=== PATIENT | female | born 1985 | race Caucasian/White ===

== ENCOUNTER 2017-03-04 12:06 | Emergency (ER) | payer MEDICAID, OTHER ==
[~2017-03-04] VITALS: Ht 160 cm; Wt 97.6 kg
[2017-03-04 12:12] VITALS: Ht 160 cm; Wt 97.6 kg
--- NOTE | 2017-03-04 13:20 | ERD ---
ER Documentation Chief Complaint Chief Complaint C/O moderate pain on right side of lower back with electric sensation legs HPI 31-year-old female history of gastric bypass in October, obesity otherwise healthy comes in with right-sided low back pain radiating towards her neck. Patient states that about 2 days ago she had missed step on the stairs and she fell onto the right side of her low back. This patient states she has achy pain , and she also has sharp electrical sensations going up towards her neck but denies any radicular symptoms to her extremities, or saddle anesthesia. The patient states that the pain is worse in movement and better at rest or sitting. She denies any fevers chills, chest pain, shortness breath. ROS All systems reviewed and are negative except as per history of present illness. Allergies Allergies: Coded Allergies: No Known Allergy (Unverified , 01/10/14) PMhx/Soc History of Surgery: Yes (Gastric sleeve) Hx Miscellaneous Medical Probl: Yes (Obesity) Hx Alcohol Use: No Hx Substance Use: No Hx Tobacco Use: No Physical Exam Vitals Vital Signs Date Time Temp Pulse Resp B/P Pulse Ox O2 Delivery O2 Flow Rate FiO2 03/04/17 12:12 99.1 108 20 117/70 97 Physical Exam General: Well-developed, well-nourished. The patient appears in no acute distress. HEENT: Head is normocephalic, atraumatic. No scleral icterus. Neck: Supple. Nontender. Lungs: Clear to auscultation. Normal air movement. Heart: Regular rate and rhythm. S1 and S2 are normal. No murmurs, gallops, or rubs. Abdomen: Soft, nontender, nondistended. Bowel sounds are normoactive. Back: no definite midline tenderness, there is soft tissue tenderness on the right lumbar region on L4-L5 as well as the lumbosacral region. Strength lower extremities 5 out of 5 bilaterally. Extremities: No clubbing or cyanosis. Normal pulses. Moving extremities x 4. No weakness. Neurologic: Alert and oriented 3. No focal deficits. Skin: Normal turgor. No rash or lesions. Results 24 hrs Current Medications Medications (Trade) Dose Ordered Sig/Shalini Route PRN Reason Start Time Stop Time Status Last Admin Dose Admin Acetaminophen (Tylenol Liquid (Ped)) 650 mg ONCE ONCE PO 03/04/17 13:30 03/04/17 13:31 DC 03/04/17 13:28 DIAGNOSTIC IMAGING REPORT Patient: SUE LIU : 1985 Age: 31 Sex: F MR #: [id number] DOS: 03/04/17 1312 Ordering MD: JES ASHLEY PA-C Location: [facility] Room/Bed: PROCEDURE: XR Pelvis. CLINICAL INDICATION: Pain, trauma . TECHNIQUE: Single AP view of the pelvis. COMPARISON: No prior studies are available for comparison. FINDINGS: The osseous structures demonstrate normal alignment and mineralization. No acute fracture or dislocation is seen. The femoral acetabular joints are normal in appearance bilaterally. The sacroiliac joints are grossly unremarkable. The soft tissues are grossly unremarkable. IMPRESSION: Normal AP view of the pelvis. RPTAT: HH .Cristina Day MD, Date Time Electronically viewed and signed by .Cristina Day MD, on 03/04/2017 14 :37 .G/ CC: JES ASHLEY PA-C DIAGNOSTIC IMAGING REPORT Patient: SUE LIU : 1985 Age: 31 Sex: F MR #: [id number] DOS: 03/04/17 1312 Ordering MD: JES ASHLEY PA-C Location: [facility] Room/Bed: PROCEDURE: XR Lumbar Spine. CLINICAL INDICATION: Trauma, injury TECHNIQUE: AP, lateral and cone-down lateral view of the lumbar spine were obtained. COMPARISON: No prior studies are available for comparison. FINDINGS: There is normal vertebral mineralization. No fracture or subluxation is seen. The disc spaces are normal in appearance. The posterior elements are unremarkable. The soft tissues appear normal. IMPRESSION: Unremarkable lumbar spine. RPTAT:AAJJ Physician Jose Angel Date Time Electronically viewed and signed by Nas Cheung Physician on 03/04/2017 14: 28 MC/ CC: JES ASHLEY PA-C Procedures/MDM ED COURSE: Urine : The patient was given Tylenol. [employer] MAKIN-year-old female comes in back pain after a fall, due to the patient's body habitus, was not able to palpate her spinous processes, and x-ray of the lumbar spine for the pelvis were obtained, no acute fractures or dislocation. Patient' s pain is due to soft tissue injury, most consistent with a back contusion. Patient's spine symptoms have stabilized while they have been evaluated in the department and are appropriate for outpatient work up. No evidence of cauda equina, cord compression, infiltrative, or infectious etiology. Departure Diagnosis: Primary Impression: Injury of back Condition: Good JES ASHLEY PA-C Mar 04, 2017 13:20
[2017-03-04] MEDS ORDERED: ACETAMINOPHEN 160 MG/5ML CUP PO ONE (13:30)
--- NOTE | 2017-03-04 14:28 | RADRPT ---
PROCEDURE: XR Lumbar Spine. CLINICAL INDICATION: Trauma, injury TECHNIQUE: AP, lateral and cone-down lateral view of the lumbar spine were obtained. COMPARISON: No prior studies are available for comparison. FINDINGS: There is normal vertebral mineralization. No fracture or subluxation is seen. The disc spaces are normal in appearance. The posterior elements are unremarkable. The soft tissues appear normal. IMPRESSION: Unremarkable lumbar spine. RPTAT:AAJJ Physician Jose Agnel Date Time Electronically viewed and signed by Nas Cheung Physician on 03/04/2017 14:28 DEBO/
--- NOTE | 2017-03-04 14:37 | RADRPT ---
PROCEDURE: XR Pelvis. CLINICAL INDICATION: Pain, trauma . TECHNIQUE: Single AP view of the pelvis. COMPARISON: No prior studies are available for comparison. FINDINGS: The osseous structures demonstrate normal alignment and mineralization. No acute fracture or disloc ation is seen. The femoral acetabular joints are normal in appearance bilaterally. The sacroiliac joints are grossly unremarkable. The soft tissues are grossly unremarkable. IMPRESSION: Normal AP view of the pelvis. RPTAT: HH .Cristina Day MD, MD Date Time Electronically viewed and signed by .Cristina Day MD, on 03/04/2017 14:37 .G/
== END 2017-03-04 15:02 | disposition home or self-care (01) ==
LOC: FTE 12:06
DX: S39.92XA Unspecified injury of lower back, initial encounter (principal); E66.9 Obesity, unspecified; W10.9XXA Fall (on) (from) unspecified stairs and steps, initial encounter; Y92.9 Unspecified place or not applicable
CPT/HCPCS: 72100; 72170; Z7502; Z7610

== ENCOUNTER 2017-10-23 00:25 | Emergency (ER) | END 2017-10-23 02:04 | disposition home or self-care (01) ==

== ENCOUNTER 2018-01-26 06:10 | Emergency (ER) | END 2018-01-26 08:57 | disposition home or self-care (01) ==

== ENCOUNTER 2018-02-10 10:22 | Emergency (ER) | END 2018-02-10 13:23 | disposition home or self-care (01) ==

== ENCOUNTER 2018-02-12 09:57 | Inpatient (IN) | END 2018-02-13 14:58 | disposition home or self-care (01) | DRG 690 ==

== ENCOUNTER 2018-04-11 06:50 | Emergency (ER) | payer OTHER ==
[~2018-04-11] VITALS: Wt 78.8 kg
[~2018-04-11 06:50] MED LIST: ACET160O41 PO; ACET160S2 PO; IBUP-1542 PO; ONDA4TAB14 PO; SULF1TAB31 PO; Work Note
[2018-04-11 06:52] VITALS: BP 114/65; PULSE 79; RESP 18
[2018-04-11] MEDS ORDERED: CEPHALEXIN 500 MG CAP PO ONE (09:00)
[2018-04-11] MEDS ORDERED: CEPH-443 PO (09:01)
--- NOTE | 2018-04-11 09:06 | ERD ---
ER Documentation Chief Complaint Chief Complaint 9 weeks with bleeding HPI 33-year-old female presents with some spotting while urinating in the urge to urinate since last night. She is approximately 9 weeks by dates. She is a G1 para 0. She may have minimal suprapubic cramping. She denies fevers, vomiting, upper abdominal pain. ROS All systems reviewed and are negative except as per history of present illness. Medications Home Meds Active Scripts Cephalexin* (Keflex*) 500 Mg Capsule, 500 MG PO QID for 5 Days, CAP Prov:RAMONA OLIVEROS MD 04/11/18 [Work Note] No Conflict Check This is to certify that the patient was admitted to [facility] from 02/11/2018 to 02/13/2018. The patient can return back to work on 02/16/2018 with no restrictions. Prov:REESE AU NP 02/13/18 Acetaminophen* (Tylenol*) 160 Mg/5ML-Ped Cup, 320 MG PO Q4H PRN for PAIN, #1 BOTTLE 10 ml Q4H Prov:REESE AU NP 02/13/18 Sulfamethoxazole/Trimethoprim* (Bactrim Ds* Tablet) 1 Each Tablet, 1 TAB PO BID for 10 Days, #20 TAB Prov:REESE AU NP 02/13/18 Ondansetron (Ondansetron Odt) 4 Mg Tab.rapdis, 4 MG PO Q6H PRN for NAUSEA AND/OR VOMITING, #10 TAB Prov:JENA FREEMAN PA-C 02/10/18 Acetaminophen* (Acetaminophen* Susp) 160 Mg/5 Ml Oral.susp, 10 ML PO Q4H PRN for PAIN OR FEVER MDD 5, #1 BOTTLE Prov:DIMA MEYERS PA-C 01/26/18 Ibuprofen* (Ibuprofen*) 600 Mg Tablet, 600 MG PO Q6, #30 TAB Prov:DIMA MEYERS PA-C 01/26/18 Allergies Allergies: Coded Allergies: No Known Allergy (Unverified , 04/11/18) PMhx/Soc History of Surgery: Yes (gastric by pass 2016) Anesthesia Reaction: No Hx Neurological Disorder: No Hx Respiratory Disorders: No Hx Cardiac Disorders: No Hx Psychiatric Problems: No Hx Miscellaneous Medical Probl: Yes (gallstone) Hx Alcohol Use: Yes (SOCIAL USE IN THE PAST ) Hx Substance Use: Yes (SOCIAL USE IN THE PAST ) Hx Tobacco Use: No FmHx Family History: No diabetes, No coronary disease, No other Physical Exam Vitals Vital Signs Date Temp Pulse Resp B/P (MAP) Pulse Ox O2 O2 Flow FiO2 Time Delivery Rate 04/11/18 98.2 79 18 114/65 99 06:52 (81) Physical Exam Const: No acute distress Head: Atraumatic Eyes: Normal Conjunctiva ENT: Normal External Ears, Nose and Mouth. Neck: Full range of motion. No meningismus. Resp: Clear to auscultation bilaterally Cardio: Regular rate and rhythm, no murmurs Abd: Soft, non tender, non distended. Normal bowel sounds Skin: No petechiae or rashes Back: No midline or flank tenderness Ext: No cyanosis, or edema Neur: Awake and alert Psych: Normal Mood and Affect Result Diagram: 04/11/18 0730 Results 24 hrs Laboratory Tests Test 04/11/18 07:30 White Blood Count 8.6 10^3/ul Red Blood Count 4.19 10^6/ul Hemoglobin 12.2 g/dl Hematocrit 36.4 % Mean Corpuscular Volume 86.9 fl Mean Corpuscular Hemoglobin 29.1 pg Mean Corpuscular Hemoglobin Concent 33.5 g/dl Red Cell Distribution Width 13.5 % Platelet Count 267 10^3/UL Mean Platelet Volume 10.7 fl Immature Granulocytes % 0.200 % Neutrophils % 66.2 % Lymphocytes % 26.8 % Monocytes % 6.1 % Eosinophils % 0.5 % Basophils % 0.2 % Nucleated Red Blood Cells % 0.0 /100WBC Immature Granulocytes # 0.020 10^3/ul Neutrophils # 5.7 10^3/ul Lymphocytes # 2.3 10^3/ul Monocytes # 0.5 10^3/ul Eosinophils # 0.0 10^3/ul Basophils # 0.0 10^3/ul Nucleated Red Blood Cells # 0.0 10^3/ul Urine Color YELLOW Urine Clarity CLOUDY Urine pH 8.0 Urine Specific [place] 1.014 Urine Ketones NEGATIVE mg/dL Urine Nitrite NEGATIVE mg/dL Urine Bilirubin NEGATIVE mg/dL Urine Urobilinogen NEGATIVE mg/dL Urine Leukocyte Esterase NEGATIVE Sen/ul Urine Microscopic RBC 46 /HPF Urine Microscopic WBC 11 /HPF Urine Bacteria FEW /HPF Urine Mucus FEW /HPF Urine Hemoglobin 3+ mg/dL Urine Glucose NEGATIVE mg/dL Urine Total Protein NEGATIVE mg/dl Current Medications Medications Dose Sig/Shalini Start Time Status Last (Trade) Ordered Route PRN Stop Time Admin Dose Reason Admin Cephalexin 500 mg ONCE ONCE 04/11/18 DC 04/11/18 (Keflex) PO 09:00 08:58 04/11/18 09:01 Procedures/MDM Patient is Rh+. Urine shows white blood cells and red blood cells. Leukocyte esterase negative nitrite negative. Pelvic ultrasound shows normal-appearing 10-week intrauterine with heart tones. No adnexal masses or additional acute abnormalities. Patient stable throughout the ER course. Patient presents with vaginal spotting possible dysuria for the last day. She will be treated empirically for UTI, and recommendations for primary care and OB follow-up and return precautions for worsening bleeding, fevers, vomiting, clots or tissue. Doubt ectopic . No evidence of tubo-ovarian abscess, surgical abdomen, appendicitis. The patient was stable with no new complaints during the ER course. Clinically, there is no current evidence to suggest meningitis, sepsis, acute abdomen, pneumonia, stroke, acute coronary syndrome, pulmonary embolism, aortic dissection or any other emergent condition appearing to require further evaluation or hospitalization. Patient counseled regarding my diagnostic impression and care plan. Prior to discharge all questions ans wered. Pt agrees with treatment plan and understands strict return precautions. Pt is instructed to follow up with primary care provider within 24-48 hours. Precautionary instructions provided including instructions to return to the ER if not improving or for any worsening or changing symptoms or concerns. Disclaimer: Inadvertent spelling and grammatical errors are likely due to EHR/dictation software use and do not reflect on the overall quality of patient care. Also, please note that the electronic time recorded on this note does not necessarily reflect the actual time of the patient encounter. Departure Diagnosis: Primary Impression: Vaginal bleeding in patient at less than 20 weeks ges... Condition: Stable Patient Instructions: Urinary Tract Infections in Women, Bleeding During Early Referrals: [facility] (PCP) Additional Instructions: Examinations normal today except for mild urine infection. Sound showed normal appearing 10-week 2-day . See OB for follow-up. Recheck otherwise for new or worsening symptoms-fevers, tissue, additional symptoms. RAMONA OLIVEROS MD Apr 11, 2018 09:06
== END 2018-04-11 09:11 | disposition home or self-care (01) ==
LOC: FTE 06:50
DX: O20.9 Hemorrhage in early pregnancy, unspecified (principal); Z3A.10 10 weeks gestation of pregnancy
CPT/HCPCS: 36415; 76801; 81001; 84702; 85025; 86900; 86901; Z7502; Z7610